=== PATIENT | female | born 1980 | race Caucasian/White ===

== ENCOUNTER 2022-10-15 08:21 | Emergency (ER) | payer OTHER, SELFPAY ==
--- NOTE | ~2022-10-15 | XR_ITS ---
XR abdomen/kub 1V 10/15/2022 08:55 Indication: Left flank pain. Hematuria. Kidney stones Procedure: KUB Comparison: CT dated 11/17/2017 Findings: Bowel gas pattern is nonobstructive. Moderate colonic fecal loading. There are left renal s tones. There are cholecystectomy clips. No acute osseous abnormality. Impression: 1: Left nephrolithiasis. Reviewed, dictated and finalized at location B. [employer] Impression: 1: Left nephrolithiasis.
[2022-10-15 08:34] VITALS: BP 153/101; PULSE 103; RESP 16; TEMP 36.8; O2SAT 100
[2022-10-15 08:41] VITALS: BP 153/101; PULSE 103; RESP 16; TEMP 36.8; O2SAT 100
--- NOTE | 2022-10-15 08:43 | ED.FEMALEGU ---
HPI - Female Genitourinary General Chief complaint: Urogenital-Female Stated complaint: kidney stone Time Seen by Provider: 10/15/22 08:43 Source: patient Mode of arrival: ambulatory Limitations: no limitations History of Present Illness HPI Narrative: 42 yo F presents with c/o L sided flank pain for 2 days. Denies N/vD. no fever/chills. States that she has had kidney stones in the past and has passed them on her own. Has not called her PCP regarding pain. States she came here today for treatment for pain because family is getting in town and help her renovate a room. pt is well appearing and talkative. No distress noted. All systems reviewed and negative except as noted above. Related Data Allergies Allergy/AdvReac Type Severity Reaction Status Date / Time adhesive Allergy Unknown BLISTERS Verified 10/15/22 08:34 Review of Systems Review of Systems: CONSTITUTIONAL: Denies fever, chills, or sweats. EYES: Denies visual changes, redness, or discharge. ENT: Denies rhinorrhea, congestion, sore throat, or otalgia. CARDIOVASCULAR: Denies chest pain, palpitations, or edema. RESPIRATORY: Denies cough or dyspnea. GASTROINTESTINAL: Denies abdominal pain, nausea, vomiting, or diarrhea. GENITOURINARY: Denies dysuria or hematuria. Reports left flank pain SKIN: Denies rash or itching. MUSCULOSKELETAL: Denies back pain, joint pain, or myalgia. NEUROLOGIC: Denies headache, numbness, or weakness. PSYCHIATRIC: Denies anxiety or depression. All other systems reviewed are negative, except as documented in HPI. PMFSH Comments At time of signature, agree with nursing past medical, surgical, social and family history. There is no relevant family history pertinent to the presenting complaint. Exam Narrative: GENERAL: This is a well-nourished, well-developed patient, in no apparent distress. HEAD: normocephalic, atraumatic. EYES: PERRL. Sclera clear/white. Vision is grossly intact. EARS: External ears normal NOSE: External nose normal NECK: Neck supple, non-tender without lymphadenopathy, masses or thyromegaly. CARDIOVASCULAR: Regular rate and rhythm without murmurs, gallops, or rubs. RESPIRATORY: Clear to auscultation. Breath sounds equal bilaterally. No wheezes, rales, or rhonchi. SKIN: warm, Dry, intact with no suspicious lesions or rash, good texture and turgor. NEURO: awake, alert, and oriented to person, place and time. There were no obvious focal neurologic abnormalities. EXTREMITIES: No joint tenderness, effusion, or edema noted. Course Course Level of Care: Express Care Visit Vital Signs Vital signs: Vital Signs Temperature 36.8 C 10/15/22 08:34 Pulse Rate 103 H 10/15/22 08:34 Respiratory Rate 16 10/15/22 08:34 Blood Pressure 153/101 H 10/15/22 08:34 Pulse Oximetry 100 10/15/22 08:34 Temperature 36.8 C 10/15/22 08:41 Pulse Rate 103 H 10/15/22 08:41 Respiratory Rate 16 10/15/22 08:41 Blood Pressure 153/101 H 10/15/22 08:41 Pulse Oximetry 100 10/15/22 08:41 Reviewed MDM - Female Genitourinary MDM Narrative Medical decision making narrative: Patient is aware of diagnosis, understands and agrees to treatment plan. Anticipatory guidance given. Patient agrees to follow-up as directed and is aware of reasons to seek care at the emergency department. Portions of this record may have been created with voice recognition software discussed x-ray results with pt. Recommend she call her PCP for outpatient CT scan. recommend she go to the ER for any worsening of symptoms. Differential Diagnosis Differential diagnosis: Likely urinary tract infection and other (kidney stone) Lab Data Labs: Urine Glucose Negative Reference Range: Negative Urine Glucose Negative Reference Range: Negative Urine Bilirubin Negative
[2022-10-15] MEDS: KETOROLAC (*BKC) 60 MG/2 ML VIAL IM (08:55)
[2022-10-15] MEDS: ONDANSETRON HCL ODT 4 MG TABLET SUBLINGUAL (08:55)
== END 2022-10-15 09:18 | disposition home or self-care (01) ==
PROVIDERS: Emergency Provider Nurse Practitioner Family
DX: N20.0 Calculus of kidney (principal)
CPT/HCPCS: 74018; 81003; 96372; 99204; A9270; G0463; J1885

== ENCOUNTER 2022-10-15 10:01 | Emergency (ER) | payer OTHER, SELFPAY ==
--- NOTE | ~2022-10-15 | CT_ITS ---
Non-contrast CT scan of the Abdomen and Pelvis Clinical indication: Left flank pain Technique: 2.5 mm axial scans were obtained through the abdomen and pelvis without intravenous or or al contrast. Dose reduction technique was used on this scan by utilizing automated exposure control a nd iterative reconstruction technique. The dose-length product (DLP) was 477.01 mGy-cm. COMPARISON: 11/17/2017 Findings: Images through the lung bases reveal no abnormalities. There is a 4 mm left UVJ stone, with mild left hydroureteronephrosis. Additional small bilateral nono bstructing renal calculi are present. No right ureteral stone or right hydronephrosis. The liver, spleen, pancreas, and adrenals appear normal. Cholecystectomy clips are present. There is no aortic aneurysm. There is no evidence of bowel obstruction. Images through the pelvis were performed. There is no evidence of ascites or lymphadenopathy. Urinary bladder otherwise unremarkable. No adnexal mass seen. Impression: 4 mm left UVJ stone with mild left hydroureteronephrosis. Reviewed, dictated and finalized at [facility]. INSPECTOR Impression: 4 mm left UVJ stone with mild left hydroureteronephrosis.
[2022-10-15 10:13] VITALS: BP 148/107; PULSE 91; RESP 16; TEMP 36.8; O2SAT 100
[2022-10-15 10:37] LABS: Basophils Percent Auto 0.3 % (0.2-1.2); Eosinophils Absolute Auto 0.1 K/mm3 (0-0.3); Eosinophils Percent Auto 1.1 % (0-4.4); Hemoglobin 14.1 g/dL (12.0-15.0); Immature Granulocyte Absolute 0.03 K/mm3 (0.00-0.031); Immature Granulocyte Percent A 0.3 % (0-0.5); Lymphocytes Percent Auto 11.5 % (18.3-44.2); Mean Corpuscular HGB Conc 32.8 g/dl (32-36); Mean Corpuscular Volume 91.5 fl (80-100); Mean Platelet Volume 9.5 fl (7.4-10.4); Monocytes Absolute Auto 0.9 K/mm3 (0.1-0.6); Monocytes Percent Auto 8.6 % (2.6-8.5); Neutrophils Absolute Auto 8.2 K/mm3 (1.3-6.7); Neutrophils Percent Auto 78.2 % (45.5-73.1); Platelet Count Result 180 k/mm3 (150-375); Red Cell Distribution Width 12.9 % (11.5-14.5); White Blood Count 10.5 K/mm3 (4.5-10.0)
[2022-10-15 10:50] LABS: Appearance Urine Clear (Clear); Bacteria Urine 1+ /hpf; Bilirubin Urine Negative (Negative); Blood Urine Trace (Negative); Color Urine Yellow (Yellow); Glucose Urine UA Negative (Negative); Hyaline Casts Urine 0-2 /lpf; Ketones Urine Negative (Negative); Leukocyte Esterase Ur Negative LEU/UL (Negative); Need Manual Microscopic Reviewed; Nitrate Urine Negative (Negative); Protein Urine Negative (Negative); RBC Urine 0-2 /hpf (0-2); Specific Grav Ur 1.007 (1.001-1.035); Squamous Epithelial Cell Urine Few /hpf (Few); Urobilinogen Urine 0.2 mg/dL (<2.0); WBC Urine 0-5 /hpf
[2022-10-15 10:50] LABS: Alanine Aminotransferase 33 U/L (6-35); Albumin Level 4.5 g/dL (3.5-5.1); Alkaline Phosphatase 90 U/L (38-126); Anion Gap 6 mmol/L (8-16); Aspartate Amino Transferase 30 U/L (14-36); Bilirubin,Total 0.7 mg/dL (0.2-1.3); Blood Urea Nitrogen 18 mg/dL (7-17); Carbon Dioxide 25 mmol/L (22-30); Chloride 103 mmol/L (98-107); Estimated Glomerular Filt Rate 44; Glucose 113 mg/dL (65-110); Potassium 4.2 mmol/L (3.4-5.0); Sodium 134 mmol/L (137-145)
[2022-10-15 10:59] LABS: Add Urine Microscopic? YES
[2022-10-15 11:40] VITALS: BP 122/78; RESP 18; O2SAT 99
[2022-10-15 12:15] LABS: Pregnancy On Board Control Positive; Urine Pregnancy Test Negative
--- NOTE | 2022-10-15 13:16 | ED.FEMALEGU ---
HPI - Female Genitourinary General Chief complaint: Urogenital-Female Stated complaint: left flank pain Time Seen by Provider: 10/15/22 12:10 History of Present Illness HPI Narrative: Patient is a 42-year-old female who presents ER with left-sided flank pain. Ongoing over the last 2 days. No nausea or vomiting. No urinary frequency urgency or dysuria. She had a urinalysis performed that showed blood and also had a KUB that showed left-sided kidney stones. She was referred here for more definitive evaluation. Related Data Allergies Allergy/AdvReac Type Severity Reaction Status Date / Time adhesive Allergy Unknown BLISTERS Verified 10/15/22 11:58 Review of Systems Review of Systems: All systems reviewed & are unremarkable except as noted in HPI and below Constitutional: Constitutional: Denies chills and Denies fatigue ENT: Denies nasal congestion and Denies sore throat Cardiovascular: Cardiovascular: Denies chest pain, Denies rapid heart rate and Denies radiating jaw, neck or arm pain Gastrointestinal: Gastrointestinal: Denies abdominal pain, Denies nausea and Denies vomiting Genitourinary: Genitourinary: Denies nocturia, Denies dysuria and Reports flank pain PMFSH Past Medical History Medical History (Updated 10/15/22 @ 14:20 by Maged Carbone MD) Kidney stones Surgical History Surgical History (Updated 10/15/22 @ 13:19 by Maged Carbone MD) History of section History of cholecystectomy Exam Narrative: GENERAL: Well-appearing, well-nourished, and in no acute distress. HEAD: Normocephalic, atraumatic. ENT: Mucous membranes moist. CHEST: Clear to auscultation. No respiratory distress. HEART: Regular rate and rhythm. Normal peripheral pulses. ABDOMEN: Soft, nontender, nondistended. Back: No CVA tenderness. No reproducible midline tenderness to T/L-spine. There is mild left lower paraspinal muscular tenderness around L3. EXTREMITIES: Normal range of motion. No edema. SKIN: Warm, dry, no rash. NEURO: Alert and oriented x3. PSYCH: Normal mood and affect. Course Course Emergency Course: Discussed with urology and they recommend patient receive prophylactic antibiotic. Patient educated on diagnosis and treatment plan. Will send home with a urine strainer. Vital Signs Vital signs: Vital Signs Temperature 98.2 F 10/15/22 10:13 Pulse Rate 91 10/15/22 10:13 Respiratory Rate 16 10/15/22 10:13 Blood Pressure 148/107 H 10/15/22 10:13 Pulse Oximetry 100 10/15/22 10:13 Oxygen Delivery Room Air 10/15/22 10:13 Temperature 98.2 F 10/15/22 10:13 Pulse Rate 87 10/15/22 14:53 Respiratory Rate 18 10/15/22 14:53 Blood Pressure 153/105 H 10/15/22 14:53 Pulse Oximetry 100 10/15/22 14:53 Oxygen Delivery Room Air 10/15/22 11:32 MDM - Female Genitourinary Lab Data 10/15/22 10:19 10/15/22 10:19 Labs: Lab Results 10/15/22 10/15/22 10/15/22 Range/Units 10:19 10:19 10:25 WBC 10.5 H (4.5-10.0) K/mm3 RBC 4.70 (4.2-5.4) M/mm3 Hgb 14.1 (12.0-15.0) g/dL Hct 43.0 (37.0-47.0) % MCV 91.5 (80-100) fl MCH 30.0 (26-34) pg MCHC 32.8 (32-36) g/dl RDW 12.9 (11.5-14.5) % Plt Count 180 (150-375) k/mm3 MPV 9.5 (7.4-10.4) fl Immature Gran % (Auto) 0.3 (0-0.5) % Neut % (Auto) 78.2 H (45.5-73.1) % Lymph % (Auto) 11.5 L (18.3-44.2) % [place]well % (Auto) 8.6 H (2.6-8.5) % Eos % (Auto) 1.1 (0-4.4) % Baso % (Auto) 0.3 (0.2-1.2) % Lymph # (Auto) 1.20 (0.9-3.2) K/mm3 Barnwell # (Auto) 0.9 H (0.1-0.6) K/mm3 Eos # (Auto) 0.1 (0-0.3) K/mm3 Baso # (Auto) 0.0 (0.0-0.1) K/mm3 Abs Immat Gran (auto) 0.03 (0.00-0.031) K/mm3 Absolute Neuts (auto) 8.2 H (1.3-6.7) K/mm3 Absolute Nucleated RBC 0.0 (0.0-0.012) K/mm3 Nucleated RBC % 0.0 (0.0-0.2) % Sodium 134 L (137-145) mmol/L Potassium 4.2 (3.4-5.0) mmol/L Chloride 103 (98-107) mm
[2022-10-15] MEDS: KETOROLAC 30 MG/ML VIAL (*BKC) IV PUSH (14:14)
[2022-10-15 14:53] VITALS: BP 153/105; PULSE 87; RESP 18; O2SAT 100
== END 2022-10-15 14:55 | disposition home or self-care (01) ==
PROVIDERS: Emergency Provider Emergency Medicine; PCP Nurse Practitioner Family
DX: N13.2 Hydronephrosis with renal and ureteral calculous obstruction (principal); Z87.442 Personal history of urinary calculi
CPT/HCPCS: 36415; 74176; 80053; 81001; 81025; 85025; 96365; 96375; 99284; J0131; J1885

== ENCOUNTER 2022-11-04 08:04 | Outpatient (CLI) | payer OTHER, SELFPAY ==
--- NOTE | ~2022-11-04 | US_ITS ---
Renal-Bladder ultrasound Clinical History: Left ureteral stone Technique: Real-time sonographic imaging of the kidneys and urinary bladder was performed. Findings: The right kidney measures 10.6 cm in length and the left kidney measures 10.6 cm. There is no hydronephrosis or renal calculus identified. Renal cortical echogenicity is within normal limits. No renal mass lesion is identified. The urinary bladder is partially distended at the time of this exam. No intraluminal echoes are ident ified. No abnormal wall thickening is seen. Impression: No significant abnormality seen. Reviewed, dictated and finalized at location . Impression: No significant abnormality seen.
--- NOTE | ~2022-11-04 | XR_ITS ---
EXAMINATION: XR abdomen/kub 1V DATE: 11/04/2022 08:28 INDICATION: Left ureteral stone. TECHNIQUE: A supine view of the abdomen on 2 radiographs was obtained. COMPARISON: CT abdomen and pelvis 10/15/2022 FINDINGS: There are no dilated loops of bowel. Surgical clips in the right upper quadrant are likely from cholecystectomy. There are approximately 7 stones in left kidney lower pole measuring up to 3 mm . IMPRESSION: 1. Left kidney stones. Reviewed, dictated and finalized at location A. IMPRESSION: 1. Left kidney stones.
== END 2022-11-04 08:05 | disposition home or self-care (01) ==
PROVIDERS: PCP Nurse Practitioner Family; Visit Provider Urology
DX: N20.0 Calculus of kidney (principal)
CPT/HCPCS: 74018; 76770

== ENCOUNTER 2023-03-30 09:16 | Emergency (ER) | payer OTHER, SELFPAY ==
--- NOTE | ~2023-03-30 | XR_ITS ---
EXAMINATION: XR ankle RT min 3V DATE: 03/30/2023 09:42 INDICATION: Lateral sided right ankle pain post twisting injury TECHNIQUE: Anteroposterior, oblique, mortise, and lateral views of the right ankle were obtained. COMPARISON: None. FINDINGS: Alignment is normal. No fracture. Joint spaces are well maintained. Achilles and plantar calcaneal s purs. No ankle joint effusion. Prominent soft tissue swelling about the lateral malleolus. IMPRESSION: 1. No acute osseous abnormality. Reviewed, dictated and finalized at location B.
[2023-03-30 09:39] VITALS: BP 138/99; PULSE 86; RESP 16; TEMP 36.4; O2SAT 100
--- NOTE | 2023-03-30 09:55 | ED.LOWEXIN ---
HPI - Extremity Injury (Lower) General Chief Complaint: Extremity Injury, Lower Stated Complaint: R ANKLE INJURY Time Seen by Provider: 03/30/23 09:40 Source: patient Mode of arrival: ambulatory Limitations: no limitations History of Present Illness HPI Narrative: Brandy is a 42-year-old female patient presenting to the clinic today with complaints of right ankle pain/injury that occurred this morning. She reports she was coming down 1 step on the porch and slipped and her ankle inverted and twisted. Has a lot of swelling over the lateral malleolus. Also some pain to the anterior ankle. Pain is worse with ambulation. Related Data Home Medications Medication Instructions Recorded Confirmed No Home Medications 03/30/23 03/30/23 Allergies Allergy/AdvReac Type Severity Reaction Status Date / Time adhesive Allergy Unknown BLISTERS Verified 03/30/23 09:58 Review of Systems Review of Systems: Pertinent positives per HPI. Patient denies any fever, chills, rash, headache, visual changes, dizziness, cough, runny nose, sore throat, shortness of breath, chest pain, palpitations, nausea, vomiting, diarrhea, constipation, abdominal pain, or any urinary issues. [facility] Past Medical History Medical History Kidney stones Surgical History Surgical History History of section History of cholecystectomy Comments At the time of my signature, I reviewed and agree with the nursing past medical, surgical, social, and family history. There is no relevant family history pertinent to the patient complaint. Exam Narrative: General: Well-developed, overweight, in no apparent distress Head: Normocephalic, atraumatic. Cardio: Regular rate and rhythm, s1 and s2 normal, no murmur appreciated. Resp: Clear to auscultation bilaterally, no rhonchi, rales, wheezing or rubs. Musculoskeletal: No deformity, swelling noted over the lateral malleolus, tender to palpation over the lateral malleolus and anterior ankle, grossly normal range of motion, strong dorsal flexion and plantar flexion against resistance, muscle strength strong and equal, peripheral pulse strong, no cyanosis, sitting in wheelchair Course Course Emergency Course: Portions of this record may have been created with voice recognition software. Level of Care: Express Care Visit Vital Signs Vital signs: Vital Signs Oxygen Delivery Room Air 03/30/23 09:35 Temperature 36.4 C L 03/30/23 09:39 Pulse Rate 86 03/30/23 09:39 Respiratory Rate 16 03/30/23 09:39 Blood Pressure 138/99 H 03/30/23 09:39 Pulse Oximetry 100 03/30/23 09:39 Oxygen Delivery Room Air 03/30/23 09:39 Vital signs reviewed MDM - Extremity Injury (Lower) MDM Narrative Medical decision making narrative: At the time of visit patient is resting comfortably in the wheelchair. Ice pack was placed. X-ray was performed shows no fracture or malalignment of the right ankle. I suspect patient has an ankle sprain. Supportive measures were discussed with the patient she voiced understanding discharge instructions and agrees to treatment plan. Differential Diagnosis Differential diagnosis: Likely ankle sprain and strain and ankle fracture Imaging Data Radiologist's impression: [address] [place], [place] [id number] XRay Report Signed Patient: Lucia Orosco : 1980 MR#: [id number] Age/Sex: 42 / F Acct:[id number] Loc: [facility]? ? ADM Date: 03/30/23Attending Dr: Ordering Physician: Alexandro Caldera APRN Date of Service: 03/30/23 Procedure(s): XR ankle RT min 3V Accession Number(s): [id number] cc: Aditi, Brittany Chamberlain APN; Alexandro Caldera APRN~ EXAMINATION: XR ankle RT min 3V DATE: 03/30/2023 09:42 INDICATION: Lateral sided right ankle
== END 2023-03-30 10:10 | disposition home or self-care (01) ==
PROVIDERS: Emergency Provider Nurse Practitioner Family; PCP Nurse Practitioner Family
DX: S93.401A Sprain of unspecified ligament of right ankle, initial encounter (principal); X50.9XXA Other and unspecified overexertion or strenuous movements or postures, initial encounter
CPT/HCPCS: 73610; 99213; G0463

== ENCOUNTER 2023-10-23 18:45 | Emergency (ER) | payer OTHER, SELFPAY ==
[2023-10-23 18:53] VITALS: BP 130/97; PULSE 90; RESP 16; TEMP 36.1; O2SAT 100
--- NOTE | 2023-10-23 19:56 | ED.WOUNDLAC ---
HPI - Wound/Laceration General Chief Complaint: Wound/Laceration Stated Complaint: Cut Finger Time Seen by Provider: 10/23/23 19:28 Source: patient and RN notes reviewed Mode of arrival: ambulatory Limitations: no limitations History of Present Illness HPI narrative: Patient presents today with a laceration to the tip of the left 2nd finger that occurred approximately 1.5 hours prior to exam when she used a knife to cut open a package of meat at home. Denies numbness or tingling. She currently rates her pain 4/10. She is not up-to-date on her tetanus vaccine. Related Data Home Medications Medication Instructions Recorded Confirmed No Home Medications 03/30/23 10/23/23 Allergies Allergy/AdvReac Type Severity Reaction Status Date / Time adhesive Allergy Unknown BLISTERS Verified 10/23/23 19:57 Review of Systems Review of Systems: CONSTITUTIONAL: Denies body aches, fever, chills, or sweats. EYES: Denies visual changes, redness, or discharge. ENT: Denies rhinorrhea, congestion, sore throat, or otalgia. CARDIOVASCULAR: Denies chest pain, palpitations, or edema. RESPIRATORY: Denies cough or dyspnea. GASTROINTESTINAL: Denies abdominal pain, nausea, vomiting, or diarrhea. GENITOURINARY: Denies dysuria or hematuria. SKIN: + finger laceration. MUSCULOSKELETAL: Denies back pain, joint pain, or myalgia. NEUROLOGIC: Denies headache, numbness, tingling, or weakness. PSYCH: Denies depression or anxiety. PMFSH Past Medical History Medical History Kidney stones Surgical History Surgical History History of section History of cholecystectomy Comments At time of signature, I have reviewed and agree with nursing past medical, surgical, social and family history unless otherwise noted. Please see nursing chart for further information. There is no relevant family history pertinent to the presenting complaint Exam Narrative: GENERAL: Well-appearing, well-nourished, and in no acute distress. HEAD: Normocephalic, atraumatic. EYES: EOMI. No redness or drainage. Conjunctivae normal. ENT: Mucous membranes pink and moist. NECK: Normal AROM. CHEST: No respiratory distress. EXTREMITIES: Normal range of motion. No edema. SKIN: Warm, dry, no rash. Capillary refill normal. Normal skin turgor. Approximately 1 cm v-shaped partial thickness flap laceration to the nail fold of the left 2nd finger. Scant active bleeding. Distal sensation intact. Capillary refill normal. Full range of motion of the finger. NEURO: No focal deficits. Alert and oriented x3. Gait steady. PSYCH: Normal affect. No signs of depression or anxiety. Course Course Level of Care: Express Care Visit Vital Signs Vital signs: Vital Signs Temperature 97.0 F L 10/23/23 18:53 Pulse Rate 90 10/23/23 18:53 Respiratory Rate 16 10/23/23 18:53 Blood Pressure 130/97 H 10/23/23 18:53 Pulse Oximetry 100 10/23/23 18:53 Temperature 97.0 F L 10/23/23 18:53 Pulse Rate 90 10/23/23 18:53 Respiratory Rate 16 10/23/23 18:53 Blood Pressure 130/97 H 10/23/23 18:53 Pulse Oximetry 100 10/23/23 18:53 Reviewed Procedures Laceration Laceration 1: Date: 10/23/23 Time: 20:03 Site: hand Side (If applicable): left Size (cm): 1 Description: flap Depth: simple, single layer Pre-repair: wound explored and irrigated ====== Skin Level ====== Skin layer closed with: dermabond and steri strips ====== Subcutaneous Layer ====== ====== Muscle Layer ====== ====== Tendon Layer ====== Dressing: Splint given to patient for protection. MDM - Wound/Laceration MDM Narrative Medical decision making narrative: Patient was given the option of glue or sutures due to superficial depth of wound and location. Sutures woul
[2023-10-23] MEDS: TETANUS,DIPHTHERIA,AC PERTUSSIS ADULT (0.5 ML) BOOSTRIX IM (20:05)
== END 2023-10-23 20:07 | disposition home or self-care (01) ==
PROVIDERS: Emergency Provider Nurse Practitioner; PCP Nurse Practitioner Family
DX: S61.211A Laceration without foreign body of left index finger without damage to nail, initial encounter (principal); Z23 Encounter for immunization; W26.0XXA Contact with knife, initial encounter
CPT/HCPCS: 12001; 90471; 90715; 99212; G0463

== ENCOUNTER 2024-02-27 18:52 | Emergency (ER) | payer OTHER, SELFPAY ==
--- NOTE | 2024-02-27 19:02 | ED.SKABFB ---
HPI - Skin/Abscess/Foreign Bdy General Chief complaint: Skin/Abscess/Foreign Body Stated complaint: Poison Amy Time Seen by Provider: 02/27/24 19:00 Source: patient and RN notes reviewed Mode of arrival: ambulatory Limitations: no limitations History of Present Illness HPI narrative: 43-year-old female presents with concern for itchy poison amy rash on her forehead, cheek, bilateral arms, ankles that she has had for 8 days reports she has tried multiple [id number]-[id number] remedies without relief. She denies swollen lips, swollen tongue, trouble breathing. MD complaint: rash Related Data Home Medications Medication Instructions Recorded Confirmed cinnamon bark 500 mg capsule 500 mg PO DAILY 02/27/24 02/27/24 (Cinnamon) escitalopram oxalate 5 mg tablet 5 mg PO DAILY 02/27/24 02/27/24 metformin 500 mg tablet,extended 500 mg PO BID 02/27/24 02/27/24 release 24 hr Allergies Allergy/AdvReac Type Severity Reaction Status Date / Time adhesive Allergy Unknown BLISTERS Verified 02/27/24 18:59 Review of Systems Review of Systems: CONSTITUTIONAL: Denies malaise, chills, sweats, or fever. EYES: Denies redness, or discharge. ENT: Denies rhinorrhea, congestion, swollen lips, swollen tongue CARDIOVASCULAR: Denies chest pain, palpitations, or edema. RESPIRATORY: Denies cough or dyspnea. GASTROINTESTINAL: Denies abdominal pain, nausea, vomiting SKIN: Reports itchy rash MUSCULOSKELETAL: Denies joint pain or myalgia. NEUROLOGIC: Denies headache. All systems reviewed & are unremarkable except as noted in HPI and below PMFSH Past Medical History Medical History Kidney stones Surgical History Surgical History History of section History of cholecystectomy Comments At time of signature, agree with nursing past medical, surgical, social and family history. There is no relevant family history pertinent to the presenting complaint Exam Narrative: GENERAL: Well-appearing, well-nourished, and in no acute distress. HEAD: Normocephalic, atraumatic. EYES: PERRLA, conjunctivae clear, and EOMI. ENT: Mucous membranes moist. Oropharynx without edema, erythema or lesions. NECK: Supple. No lymphadenopathy CHEST: Clear to auscultation. No respiratory distress. HEART: Regular rate and rhythm. SKIN: Warm, dry. Patchy and linear vesicular papular rash noted to the forearms, forehead, cheek, ankles NEURO: Alert and oriented x3. PSYCH: Normal mood and affect Course Course Emergency Course: Patient is aware of diagnosis, understands and agrees to treatment plan. Anticipatory guidance given. Patient agrees to follow-up as directed and is aware of reasons to seek care at the emergency department. Portions of this record may have been created with voice recognition software Level of Care: Express Care Visit Vital Signs Vital signs: Reviewed. MDM - Skin/Abscess/Foreign Bdy MDM Narrative Medical decision making narrative: Does not appear at this time to be erythema multiforme, bullous, SJS, TEN; no evidence at this time to suggest RMSF, endocarditis or Lyme disease; patient looks well, nontoxic and is tolerating oral intake; no neurologic signs or symptoms; no headache, photophobia or neck pain; afebrile; appropriate for initial outpatient treatment; discussed the importance of follow-up, patient agrees; question, viral exanthema, contact dermatitis, allergic dermatitis, eczema, urticaria. No soft palate or uvula edema, no tongue, lip edema or other mucosal involvement, no respiratory compromise, no stridor, no wheezing, no wheezing, no history of syncope, no hypotension, no nausea, vomiting, or diarrhea. Instructed patient to go to nearest ER immediately for any worsening symptoms including but not limited to: fever, spreading rash, pain, sore throat, headache, dizziness, chest pain, trouble breathing, o
[2024-02-27 19:03] VITALS: BP 136/105; PULSE 93; RESP 14; TEMP 36.4; O2SAT 100
== END 2024-02-27 19:13 | disposition home or self-care (01) ==
PROVIDERS: Emergency Provider Nurse Practitioner; PCP Family Medicine
DX: L25.9 Unspecified contact dermatitis, unspecified cause (principal)
CPT/HCPCS: 99213; G0463